=== PATIENT | male | born 1960 | race Caucasian/White ===

== ENCOUNTER 2020-03-23 08:45 | Day surgery (SDC) | payer BC, MEDICARE ==
--- NOTE | 2020-03-10 13:51 | NUR ---
PRE-ADMIT: WALKER: PT DOES NOT HAVE ONE AND WILL NEED TO OBTAIN THIS ITEM. BUT PT DOES HAVE A ELETRIC W/C STEPS: PT HAS RAMP AT HIS HOME GO GET INTO THE HOME AND THEN NO OTHER STEPS SHOWER: IT IS A WALKING, BUT UNABLE TO PLACE A SHOWER CHAIR INTO THE AREA TOO SMALL. HAS A TUB SHOWER THAT HE CAN PLACE A SHOWER CHAIR BUT WILL HAVE TO LIFT LEG INTO THE TUB. SHOWERS DUE HAND HELD SHOWER WAND. TOLITES; HAS TALL TOLIETS IN THE HOME. TRANSPORTION: WILL TAKE PT IF NEED OR HE WILL USE W/C DUE TO HE LIVES CLOSE TO DR STEWART OFFICE AND THE [facility] FOR PT.
[~2020-03-23] VITALS: Ht 167.6 cm; Wt 93.2 kg
[~2020-03-23 08:45] MED LIST: ACYCLOVIR200 MG PO; LISINOPRIL-HCT1 EAC1 PO; MS CONTIN30 MG PO; ZANAFLEX4 MG PO
--- NOTE | 2020-03-23 08:45 | NUR ---
PT ARRIVES TO DAY SURGERY WALKING INDEPENDENLTY, ACCOMPANIED BY , AND PLACED IN RM 3.
[2020-03-23] MEDS ORDERED: IRON325 M1 PO (09:09)
--- NOTE | 2020-03-23 09:31 | NUR ---
PRE-PROCEDURE CHECK IN COMPLETE. PT RESTING IN LOCKED AND LOWERED BED, CALL LIGHT WITHIN REACH. AT THE BEDSIDE. NO FURTHER REQUESTS AT THIS TIME.
--- NOTE | 2020-03-23 10:30 | NUR ---
IN TO ASSIST DELIVERER PHARMACY WITH BLOCK. BLOCK COMPLETE. PT RESTING IN LOCKED AND LOWERED BED, SIDE RAILS UP, CALL LIGHT WITHIN REACH. AT THE BEDSIDE.
--- NOTE | 2020-03-23 11:29 | NUR ---
IN TO ADMINISTER MEDICATION. PT SLEEPING IN LOCKED AND LOWERED BED, SIDE RAILS UP, CALL LIGHT WITHIN REACH, AT THE BEDSIDE. NO FURTHER REQUESTS AT THIS TIME.
--- NOTE | 2020-03-23 13:47 | NUR ---
03/23/20 1347 Sheets,Priya 1338 PT ARRIVED TO PACU ON 6L VIA MASK, PT NONAROUSBALE TO PAINFUL STIMULI WITH ORAL AIRWAY IN PLACE. RESP EVEN AND UNLABROED, RATE OF 8. VSS.
[2020-03-23] MEDS ORDERED: XARELTO10 MG PO (14:35)
[2020-03-23] MEDS ORDERED: OXYCODONE HCL5 MG PO (14:36)
[2020-03-23] MEDS ORDERED: ASPIRIN EC325 MG PO (14:36)
[2020-03-23] MEDS ORDERED: GABAPENTIN300 MG PO (14:36)
[2020-03-23] MEDS ORDERED: STOOL SOFTENER1 EAC4 PO (14:36)
--- NOTE | 2020-03-23 14:45 | NUR ---
PT RETURNED FROM PACU TO RM 3. PT RESTING IN LOCKED AND LOWERED BED, SIDE RAILS UP, CALL LIGHT WITHIN REACH, AT THE BEDSIDE. ICE WATER AND PUDDING PROVIDED.
--- NOTE | 2020-03-23 15:43 | NUR ---
IN FOR HOURLY ASSESSMENT. PT SLEEPING IN LOCKED AND LOWERED BED, SIDE RAILS UP, CALL LIGHT WITHIN REACH, AT THE BEDSIDE. WATER REFRESHED, CRACKERS PROVIDED. DISCHARGE CRITERIA DISCUSSED WITH . NO FURTHER REQUESTS AT THIS TIME.
--- NOTE | 2020-03-23 16:49 | NUR ---
PT UNABLE TO VOID AT THIS POINT. BLADDER SCANNED FOR 461ML OF FLUID. PT RESTING IN LOCKED AND LOWERED BED, SIDE RAILS UP, CALL LIGHT WITHIN REACH, AT THE BEDSIDE. NO FURHTER REQUESTS AT THIS TIME.
--- NOTE | 2020-03-23 17:00 | NUR ---
DR STEWART CALLED TO NOTIFY OF INABILITY TO VOID AND PHYSICAL THERAPY UNABLE TO WORK WITH PATIENT DUE TO DROWSINESS. MD ADVISED TO SEND PT TO THE FLOOR. PT AND UPDATED.
--- NOTE | 2020-03-23 17:00 | NUR ---
MED SURG CALLED AND NOTIFIED OF PT NEEDING TO TRANSFER TO MED SURG AT 1730. CHARGE NURSE VERIFIED PT WOULD BE GOING TO RM 125.
--- NOTE | 2020-03-23 17:45 | NUR ---
PT WENT FROM DAY SURGERY RM 3 TO MED SURG RM 125. PT TRANSFERRED FROM DAYSURGERY STRETCHER TO [facility] BED INDEPENDNELTY WITH NO COMPLICATIONS. HAND OFF REPORT GIVEN TO RANCHO TOTH.
--- NOTE | 2020-03-23 18:18 | NUR ---
PT ARRIVED TO FLOOR VIA STRETCHER. PT IS DROWSY. PAIN AT 6/10. SCEHDULED TORIDOL ADMSINTERED. CPOX PLACED. PT DESATS TO 87% ON RA WHILE SLEEPING. 2L NC PLACED CRYO CUFF IN PLACE, FEET PUMPS, TEDHOSE, AKHIL WRAP ON. ACTICOAT IN PLACE. ON-Q SET TO 4. LUNGS CLEAR. VITALS TAKEN AND STABLE.
--- NOTE | 2020-03-23 19:41 | NUR ---
REPORT RECEIVED FROM KENIA TOTH. PT AWAKE, DROWSY IN BED. DRESSING TO L KNEE C/D/I WITH AKHIL WRAP, CRYO AND ON-Q IN PLACE. PT REPORTS 3/10 PAIN, STATES TOLERABLE AT THIS TIME. CPOX IN PLACE, ON 2L 02 NC. PT DUE TO VOID, WILL CONT TO MONITOR AND FOLLOW MD ORDERS. CALL LIGHT IN REACH.
--- NOTE | 2020-03-23 21:31 | NUR ---
SCHEDULED MEDICATIONS ADMINISTERED. PATIENT DUE TO VOID, UNABLE. BLADDER SCAN READS >468, MEDEL PLACED PER ORDER WITH 500 ML OUT IMMEDIATELY, ORANGE IN COLOR. PT REPORTS NO PAIN IN L KNEE, "JUST PRESSURE". DRESSING C/D/I. REMAINS ON 2L O2 NC. ASSESSMENT COMPLETE. VS AND I/O'S COMPLETE. CALL LIGHT IN REACH, WILL CONTINUE TO MONITOR.
--- NOTE | 2020-03-24 00:25 | NUR ---
SCHEDULED MEDS ADMINISTERED. PATIENT REPORTS NO NEEDS OR DISCOMFORT AT THIS TIME. CALL LIGHT IN REACH, WILL CONTINUE TO MONITOR.
--- NOTE | 2020-03-24 02:46 | NUR ---
VITALS TAKEN, ASSESSMENT COMPLETE. ABX INFUSED. SALINE LOCKED. CRYO REFILLED. PRN PAIN MEDICATION ADMINISTERED FOR 6/10 PAIN TO KNEE, DRESSING C/D/I. WATER REFILLED. MEDEL WNL. PT STATES NO OTHER NEEDS. CALL LIGHT IN REACH.
--- NOTE | 2020-03-24 04:30 | NUR ---
ROUNDED ON PATIENT. GAS ENGINE MECHANIC HAD ADMINISTERED PRN PAIN MEDICATION PER PT REQUEST, THIS RN UNAVAILABLE AT TIME, SEE JUN. PT IN BED WITH EYES CLOSED, BREATHING EVEN AND UNLABORED. 2L NC IN PLACE, TOLERATING WELL. NO APPARENT NEEDS OR DISTRESS. WILL CONTINUE TO MONITOR.
--- NOTE | 2020-03-24 05:32 | NUR ---
MEDICATIONS ADMINISTERED. PATIENT STATES PAIN IS NOW DOWN TO 1-2/10. VITALS AND I/O'S COMPLETE. 2L NC IN PLACE, TOLERATING WELL. CRYO REFILLED, WATER CUP REFILLED. VSS. A+O. GIANFRANCO WNL. CALL LIGHT IN REACH, PT STATES NO OTHER NEEDS.
--- NOTE | 2020-03-24 06:32 | NUR ---
MEDEL REMOVED, WNL. PT AMBULATED TO BR WITH FWW AND 1PA, UNABLE TO VOID. BACK TO BED WITH URINAL IN REACH. SCDS ON. DRESSING C/D/I. CRYO IN PLACE, FILLED. ON-Q IN PLACE AT 4. PT REPORTS 1-2/10 PAIN IN KNEE. WATER AVAILABLE AT BEDSIDE, ENCOURAGED TO CONTINUE ATTEMPTING TO VOID. CALL LIGHT IN REACH. NO OTHER NEEDS AT THIS TIME. PT EXPRESSES GRATITUDE FOR STAFF AND FACILITY, STATES "THIS HAS BEEN A GOOD EXPERIENCE FOR ME HERE."
--- NOTE | 2020-03-24 07:13 | NUR ---
REPORT RECEIVED. PT AWAKE IN BED WATCHING TV. REMOVED 2L NC NOW THAT PT IS AWAKE. PAIN REPORTED 3/10. CALL LIGHT IN REACH. CRYOCUFF, SCD'S, TEDHOSE IN PLACE.
--- NOTE | 2020-03-24 09:59 | NUR ---
PATIENT SITTING UP IN CHAIR. IN ROOM. VITAL SIGNS AND I&O DONE. CALL LIGHT WITHIN REACH. NO OTHER NEEDS AT THIS TIME
--- NOTE | 2020-03-24 10:00 | NUR ---
SBA WITH FWW TO BATHROOM. VOIDED 200ML. UP IN CHAIR NOW. REPORTING PAIN 5/10.
--- NOTE | 2020-03-24 12:55 | NUR ---
PT UP TO BATHROOM TO ATTEMPT TO VOID. ATE 100% ON LUNCH. REPOORTING 5/10 PAIN IN RGIHT KNEE, 10 MG OXYCODONE ADMISNTERED.
--- NOTE | 2020-03-24 13:05 | NUR ---
PATIENT SITTING UP IN CHAIR. IN ROOM. PATIENT USES THE BATHROOM. ONE PERSON ASSISTING WITH WALKER. PATIENT BACKS TO CHAIR. VITAL SIGNS AND I&O DONE. CALL LIGHT WITHIN REACH. NO OTHER NEEDS AT THIS TIME
[2020-03-24] MEDS ORDERED: VITAMIN C500 M1 PO (14:12)
--- NOTE | 2020-03-24 14:14 | NUR ---
MED REC COMPLETE
--- NOTE | 2020-03-25 10:40 | OR ---
[facility] [address] [place], [place] [address] Signed DATE OF OPERATION: 03/23/2020 SURGEON: Fazal Sarmiento MD PREOPERATIVE DIAGNOSIS: Left knee degenerative joint disease. POSTOPERATIVE DIAGNOSIS: Left knee degenerative joint disease. PROCEDURE PERFORMED: Left total knee arthroplasty. TOP STEEP TENDER: CHRIS Green ANESTHESIA: Spinal. BLOOD LOSS: 200 mL. IMPLANTS: Hieu Triathlon size 5, 10 mm polyethylene and 35 mm patella. BRIEF HISTORY: Timothy is a 59-year-old gentleman with pain in both knees. His x-rays were consistent with significant osteoarthritis. Risks and benefits of operative treatment were discussed with him. He elected to proceed. DESCRIPTION OF PROCEDURE: Once consent was obtained, he was taken to the operating room. After adequate anesthesia, he was placed on operating table. All downside pressure points were well padded. Hip bump was placed. The leg was then prepped and draped in a standard sterile fashion. The leg was approached through standard anterior incision, carried through skin and subcutaneous tissue. The subvastus approach was taken through the capsule and the MCL was elevated with a sleeve around the posteromedial corner. The infrapatellar fat pad was excised. The anterior horns of menisci were transected as was the ACL. The knee was flexed and the checkpoints were placed in the medial femoral condyle and proximal tibia. The Wilver computer array was then placed in the medial femoral Electronically Signed By: FAZAL SARMIENTO MD 03/25/20 1040 PATIENT NAME: TIMOTHY SONI OPERATIVE REPORT DATE OF : 60 REPORT #: [id number] PHYSICIAN: FAZAL SARMIENTO MD PCP: DAVID BLANCAS MD REPORT IS CONFIDENTIAL AND NOT TO BE RELEASED WITHOUT AUTHORIZATION [facility] [address], [place] [address] Signed intra-incisional. Two stab incisions were made on the proximal tibia, one handbreadth below the tuberosity and the tibial array was placed. Once this was accomplished, the leg was registered with the computer. The fine anatomic points were then taken. We then took stress views and adjusted the tibia by one 1 degree and we were satisfied with the extension and flexion gaps being symmetric. The robot was then brought in and the straight cuts were made, starting with the tibia. The 2 angle cuts were then made. All bone pieces were then removed and the menisci removed posteriorly. The really want any posterior osteophytes to remove. We then placed the trials and took the knee through range of motion. I was a little loose, so we placed a 10 mm polyethylene and got excellent flexion extension gaps that were quite symmetric. The patella was cut sized and drilled for a 35 patella. The femoral drill holes were then completed as was the tibial keel punch. The bone was fairly soft, we elected to go with the hybrid prosthesis. The tibia was pulse lavaged and packed with dry Ray-Mio. The cement was mixed. When reached proper consistency, was placed on the tibia and the 2 components. The tibia was impacted into position. Excess cement was removed. The polyethylene was snapped into position and the femur was impacted until it was well seated. The knee was then extended and nicely loaded. The patella was clamped into position. Again, overflow cement was removed. The cement was allowed to harden. Once hardened sufficiently, any remaining overflow was removed using osteotomes. The knee was taken through range of motion and found to be quite stable. The On-Q pain pump was then placed percutaneously into the adductor canal through the suprapatellar pouch. The arthrotomy was then closed with #2 Stratafix. The periarticular soft tissues were injected with 100 mL ropivacaine and Toradol mixture. The subcutaneous tissue was closed with 2-0 Stratafix and skin with papi. The wounds were dressed with Acticoat 7 dressing and an Sean wrap. He was awakened and taken to the recovery room in satisfactory condition. All sponge, needle, and instrument counts were correct. Fazal Sarmiento MD BA/MODL /[id number] Copies: Electronically Signed By: FAZAL SARMIENTO MD 03/25/20 1040 PATIENT NAME: TIMOTHY SONI OPERATIVE REPORT DATE OF : 60 REPORT #: [id number] PHYSICIAN: FAZAL SARMIENTO MD PCP: DAVID BLANCAS MD REPORT IS CONFIDENTIAL AND NOT TO BE RELEASED WITHOUT AUTHORIZATION [facility] [address] [place] [id number] Signed ~ Electronically Signed By: FAZAL SARMIENTO MD 03/25/20 1040 PATIENT NAME: TIMOTHY SONI ANTONIO OPERATIVE REPORT DATE OF : 60 REPORT #: [id number] PHYSICIAN: FAZAL SARMIENTO MD PCP: DAVID BLANCAS MD REPORT IS CONFIDENTIAL AND NOT TO BE RELEASED WITHOUT AUTHORIZATION
[2020-03-25] MEDS ORDERED: OXYCODONE HCL10 MG PO (12:20)
--- NOTE | 2020-03-27 08:03 | NUR ---
H&P, Surgery report, PT eval and notes, face sheet faxed to [facility].
== END 2020-03-24 15:25 | disposition home or self-care (01) ==
LOC: DS 08:45 → MS 08:45 → DS 10:30 → MS 17:45 → DS 03-24 15:25
PROVIDERS: ATTEND Specialist
PROC: 8E0Y0CZ Robotic Assisted Procedure of Lower Extremity, Open Approach (ICD-10-PCS; 2020-03-23)
PROC: 3E0T3BZ Introduction of Anesthetic Agent into Peripheral Nerves and Plexi, Percutaneous Approach (ICD-10-PCS; 2020-03-23)
PROC: 3E0T3BZ Introduction of Anesthetic Agent into Peripheral Nerves and Plexi, Percutaneous Approach (ICD-10-PCS; 2020-03-23)
PROC: 0SRD0J9 Replacement of Left Knee Joint with Synthetic Substitute, Cemented, Open Approach (ICD-10-PCS; principal; 2020-03-23 10:30)
DX: M17.0 Bilateral primary osteoarthritis of knee (principal); G89.18 Other acute postprocedural pain; I12.9 Hypertensive chronic kidney disease with stage 1 through stage 4 chronic kidney disease, or unspecified chronic kidney disease; N18.30 Chronic kidney disease, stage 3 unspecified; G89.29 Other chronic pain; M54.9 Dorsalgia, unspecified; Z79.899 Other long term (current) drug therapy; Z87.891 Personal history of nicotine dependence; Z20.828 Contact with and (suspected) exposure to other viral communicable diseases; Z01.812 Encounter for preprocedural laboratory examination
CPT/HCPCS: 0055T; 27447; 01402; 51702; 51798; 64447; 64450; 76942; 97110; 97116; 97161; 97165; C1713; C1776; J0461; J0690; J0735; J1100; J1160; J1885; J2001; J2250; J2405; J2704; J2765; J2795; J3010; J7121; J8540

== ENCOUNTER 2020-03-25 09:24 | Emergency (ER) | payer BC, MEDICARE ==
[~2020-03-25] VITALS: Ht 167.6 cm; Wt 93.0 kg
[~2020-03-25 09:24] MED LIST changes: +ASPIRIN EC325 MG PO; +GABAPENTIN300 MG PO; +IRON325 M1 PO; +OXYCODONE HCL5 MG PO; +STOOL SOFTENER1 EAC4 PO; +VITAMIN C500 M1 PO; +XARELTO10 MG PO
--- OUTSIDE RECORDS SUMMARY | 2020-03-25 09:58 | XMS ---
PreManage Notification: MOO SONI Security Nuclear Medicine Chief Technologist Events No recent Security Events currently on file [facility] There are no care providers on record at this time. [facility] has no Care Guidelines for this patient. Madeline VISIT COUNT (12 MO.) 1 RANDEE Rosenbaum TOTAL 1 NOTE: Visits indicate total known visits. ED/UCC VISIT TRACKING (12 MO.) 03/25/2020 09:24 RANDEE Walker OR TYPE: Emergency COMPLAINT: - POST OP PROBLEM/PAIN INPATIENT VISIT TRACKING (12 MO.) No inpatient visits to display in this time frame [id number]
[2020-03-25] MEDS ORDERED: OXYCODONE HCL10 MG PO (12:20)
== END 2020-03-25 12:41 | disposition home or self-care (01) ==
LOC: ED 09:24
DX: G89.18 Other acute postprocedural pain (principal); I10 Essential (primary) hypertension; Z87.891 Personal history of nicotine dependence; Z79.899 Other long term (current) drug therapy; Z79.82 Long term (current) use of aspirin
CPT/HCPCS: 96372; 99283; J1170; J1885

== ENCOUNTER 2021-11-16 05:32 | Day surgery (SDC) | payer BC, MEDICARE ==
[~2021-11-16] VITALS: Ht 167.6 cm; Wt 104.5 kg
[~2021-11-16 05:32] MED LIST changes: +DICLOFENAC SODI75 MG PO; +GABAPENTIN600 MG PO; +OXYCODONE HCL10 MG PO
[2021-11-16] MEDS ORDERED: ACETAMINOPHEN325 M1 PO (06:05)
[2021-11-16] MEDS ORDERED: IBUPROFEN200 M1 PO (06:05)
--- NOTE | 2021-11-16 08:38 | NUR ---
PT ALERT, ORIENTED AND HAS HAD PREVIOUS SCOPES. PT WAITING FOR DR, GAVE BLESSING, PT THANKED ME SAID HE WAS DOING OK. WILL FOLLOW
--- NOTE | 2021-11-16 09:15 | NUR ---
11/16/21 0915 Anna Najera 0910-PATIENT ARRIVED TO PACU ON 10L MASK NONAROUSABLE ORAL AIRWAY IN PLACE. PLACED ON 6L MASK RR EVEN. LAYING LEFT LATERAL ABDOMEN SOFT. SR. IVF INFUSING. PATIENT HAS CHRONIC BACK PAIN AT HOME ORDERS WERE PLACED BY AZALEA STONER
--- NOTE | 2021-11-16 21:47 | OR ---
[facility] [address] [place], [place] [address] Signed DATE OF OPERATION: 11/16/2021 SURGEON: Azalea Mac MD PREOPERATIVE DIAGNOSIS: History of multiple polypectomies in the past. Last colonoscopy in 2015 (seven polyps). POSTOPERATIVE DIAGNOSES: 1. No evidence of polyps. 2. Internal hemorrhoids. PROCEDURE: Total colonoscopy to cecum. ANESTHESIA: Intravenous sedation, propofol infusion, Azalea Gale CRNA INDICATIONS: This 61-year-old white man is a patient of Dr. Blancas and underwent colonoscopy in [place], [place] in 2014 at which time he was found to have seven polyps. He is currently symptom free. He does have chronic pain in his back and elsewhere for which he takes MS Contin on a routine basis. He is admitted for colonoscopy. He understands the risks of bleeding, infection, and perforation. FINDINGS: The prep was quite excellent. Complete colonoscopy was undertaken of the cecum without question. He had no evidence of polyps, diverticular formation, colitis, or cancer. There were internal hemorrhoids, however. DESCRIPTION OF PROCEDURE: The patient was brought to the endoscopy suite and placed in lateral decubitus position. He was given preoperative antibiotic Ancef on the basis of prior knee replacement. After satisfactory anesthesia, digital rectal examination was performed which was normal. An Olympus video colonoscope was passed in the rectum and manipulated throughout the colon ultimately intubating the cecum itself. The ileocecal valve and appendiceal orifice were identified and the cecum was fully intubated. The scope was withdrawn from that point and examination throughout showed no sign of abnormality, specifically no polyps, diverticular formation, colitis, or cancer. Retroflexed view in the rectum did Electronically Signed By: AZALEA MAC MD 11/16/21 2147 PATIENT NAME: MOO SONI OPERATIVE REPORT DATE OF : 60 REPORT #: [id number] PHYSICIAN: AZALEA MAC MD PCP: DAVID BLANCAS MD REPORT IS CONFIDENTIAL AND NOT TO BE RELEASED WITHOUT AUTHORIZATION [facility] [address] [place], [place] [address] Signed confirm internal hemorrhoids. The scope was removed and the patient was taken to the recovery room in good condition. CONCLUSION DIAGNOSIS: Normal colon except for internal hemorrhoids. PLAN: Recommend repeat colonoscopy in 5 to 7 years based on prior history of multiple polyps, sooner if symptoms should develop. Recommend high-fiber diet as well. He will return to the ongoing care of Dr. Blancas. MD ERASMO Patrick/ARIN /[id number] cc: Dr. Blancas Copies: ~ Electronically Signed By: AZALEA MAC MD 11/16/21 2147 PATIENT NAME: MOO SONI OPERATIVE REPORT DATE OF : 60 REPORT #: [id number] PHYSICIAN: AZALEA MAC MD PCP: DAVID BLANCAS MD REPORT IS CONFIDENTIAL AND NOT TO BE RELEASED WITHOUT AUTHORIZATION
== END 2021-11-16 09:55 | disposition home or self-care (01) ==
LOC: DS 05:32 → OPS 05:32 → DS 08:00 → OPS 09:55
PROVIDERS: ATTEND Surgery
PROC: 0DJD8ZZ Inspection of Lower Intestinal Tract, Via Natural or Artificial Opening Endoscopic (ICD-10-PCS; principal; 2021-11-16 08:00)
DX: Z12.11 Encounter for screening for malignant neoplasm of colon (principal); K64.8 Other hemorrhoids; I10 Essential (primary) hypertension; B00.1 Herpesviral vesicular dermatitis; E66.9 Obesity, unspecified; Z68.36 Body mass index [BMI] 36.0-36.9, adult; Z86.010 Personal history of colon polyps; Z96.659 Presence of unspecified artificial knee joint; Z20.822 Contact with and (suspected) exposure to COVID-19
CPT/HCPCS: C9803; J0690; J2270; J2704; J7121; U0003

== ENCOUNTER 2022-11-07 09:03 | Emergency (ER) | payer BC, MEDICARE ==
[~2022-11-07] VITALS: Ht 167.6 cm; Wt 104.3 kg
--- OUTSIDE RECORDS SUMMARY | ~2022-11-07 | XMS | Continuity of Care Document ---
Demographics + + + | Address | [address] | | | [place] [address] | + + + | Preferred Language | Unknown | + + + | Marital Status | | + + + | Episcopal Affiliation | Unknown | + + + | Race | White | + + + | Ethnic Group | Not or | + + + Author + + + | Author | [facility] | + + + | Organization | [facility] | + + + | Address | [address] | | | [place] [address] | + + + | Phone | | + + + Care Team Providers + + + + | Care Dietetic Intern Name | Role | Phone | + + + + Unavailable | Unavailable | + + + + Unavailable | Unavailable | + + + + Allergies No information. Encounters No information. Functional Status No information. Immunizations No information. Medications + + + + | date | description | facility | + + + + | 2020-03-23 00:00 | OXYCODONE HCL | [facility] | + + + + | 2020-03-25 00:00 | OXYCODONE HCL | [facility] | + + + + | 2020-03-23 00:00 | RIVAROXABAN | [facility] | + + + + | 2021-11-16 00:00 | TIZANIDINE HCL | [facility] | + + + + | 2021-11-16 00:00 | ACYCLOVIR | [facility] | + + + + | 2021-11-16 00:00 | | [facility] | | | LISINOPRIL/HYDROCHLOROTHIAZ | | | | CARLOS | | + + + + | 2020-03-23 00:00 | ASPIRIN | [facility] | + + + + | 2020-03-23 00:00 | GABAPENTIN | [facility] | + + + + | 2021-11-16 00:00 | IBUPROFEN | [facility] | + + + + | 2021-11-16 00:00 | ACETAMINOPHEN | [facility] | + + + + | 2021-11-16 00:00 | MORPHINE SULFATE | [facility] | + + + + | 2020-03-23 00:00 | Sennosides/Docusate Sodium | [facility] | | | | | + + + + Problems + + + + | date | description | facility | + + + + | 2020-03-25 00:00 | Postoperative pain | [facility] | + + + + Procedures + + + + | date | description | facility | + + + + | 2021-11-16 00:00 | Colonoscopy with biopsy if | [facility] | | | indicated | | + + + + | 2021-11-16 00:00 | Colonoscopy with biopsy if | [facility] | | | indicated | | + + + + Results/Labs +--------+--------+ + +---------+--------+ + | test | date | author | facility | value | unit | | | | | | | | | interpreta | | | | | | | | tion | +--------+--------+ + +---------+--------+ + + + | Result panel 1 | + + + + + + +---------+ + + | (unknown) | (no date) | (unknown) | [facility] | (no | (units | (unknown) | | | | [facility] | value) | unknown) | | | | [facility] | | | | + + + + +---------+ + + + + | Result panel 2 | + + + + + + +---------+ + + | (unknown) | (no date) | (unknown) | [facility] | (no | (units | (unknown) | | | | | [facility] | value) | unknown) | | | | | [facility] | | | | + + + + +---------+ + + + + | Result panel 3 | + + + + + + +---------+ + + | (unknown) | (no date) | (unknown) | [facility] | (no | (units | (unknown) | | | | | [facility] | value) | unknown) | | | | | [facility] | | | | + + + + +---------+ + + + + | Result panel 4 | + + + + + + +---------+ + + | (unknown) | (no date) | (unknown) | [facility] | (no | (units | (unknown) | | | | | [facility] | value) | unknown) | | | | | [facility] | | | | + + + + +---------+ + + + + | Result panel 5 | + + + + + + +---------+ + + | (unknown) | (no date) | (unknown) | [facility] | (no | (units | (unknown) | | | | | [facility] | value) | unknown) | | | | | [facility] | | | | + + + + +---------+ + + + + | Result panel 6 | + + + + + + +---------+ + + | (unknown) | (no date) | (unknown) | [facility] | (no | (units | (unknown) | | | | | [facility] | value) | unknown) | | | | | [facility] | | | | + + + + +---------+ + + + + | Result panel 7 | + + + + + + +---------+ + + | (unknown) | (no date) | (unknown) | [facility] | (no | (units | (unknown) | | | | | [facility] | value) | unknown) | | | | | [facility] | | | | + + + + +---------+ + + + + | Result panel 8 | + + + + + + +---------+ + + | (unknown) | (no date) | (unknown) | [facility] | (no | (units | (unknown) | | | | | [facility] | value) | unknown) | | | | | [facility] | | | | + + + + +---------+ + + + + | Result panel 9 | + + + + + + +---------+ + + | (unknown) | (no date) | (unknown) | [facility] | (no | (units | (unknown) | | | | | [facility] | value) | unknown) | | | | | [facility] | | | | + + + + +---------+ + + + + | Result panel 10 | + + + + + + +---------+ + + | (unknown) | (no date) | (unknown) | [facility] | (no | (units | (unknown) | | | | | [facility] | value) | unknown) | | | | | [facility] | | | | + + + + +---------+ + + + + | Result panel 11 | + + + + + + +---------+ + + | (unknown) | (no date) | (unknown) | [facility] | (no | (units | (unknown) | | | | | [facility] | value) | unknown) | | | | | [facility] | | | | + + + + +---------+ + + + + | Result panel 12 | + + + + + + +---------+ + + | (unknown) | (no date) | (unknown) | [facility] | (no | (units | (unknown) | | | | | [facility] | value) | unknown) | | | | | [facility] | | | | + + + + +---------+ + + + + | Result panel 13 | + + + + + + +---------+ + + | (unknown) | (no date) | (unknown) | [facility] | (no | (units | (unknown) | | | | | [facility] | value) | unknown) | | | | | [facility] | | | | + + + + +---------+ + + + + | Result panel 14 | + + + + + + +---------+ + + | (unknown) | (no date) | (unknown) | [facility] | (no | (units | (unknown) | | | | | [facility] | value) | unknown) | | | | | [facility] | | | | + + + + +---------+ + + + + | Result panel 15 | + + + + + + +---------+ + + | (unknown) | (no date) | (unknown) | [facility] | (no | (units | (unknown) | | | | | [facility] | value) | unknown) | | | | | [facility] | | | | + + + + +---------+ + + + + | Result panel 16 | + + + + + + +---------+ + + | (unknown) | (no date) | (unknown) | [facility] | (no | (units | (unknown) | | | | | [facility] | value) | unknown) | | | | | [facility] | | | | + + + + +---------+ + + + + | Result panel 17 | + + + + + + +---------+ + + | (unknown) | (no date) | (unknown) | [facility] | (no | (units | (unknown) | | | | | [facility] | value) | unknown) | | | | | [facility] | | | | + + + + +---------+ + + + + | Result panel 18 | + + + + + + +---------+ + + | (unknown) | (no date) | (unknown) | [facility] | (no | (units | (unknown) | | | | | [facility] | value) | unknown) | | | | | [facility] | | | | + + + + +---------+ + + + + | Result panel 19 | + + + + + + +---------+ + + | (unknown) | (no date) | (unknown) | [facility] | (no | (units | (unknown) | | | | | [facility] | value) | unknown) | | | | | [facility] | | | | + + + + +---------+ + + + + | Result panel 20 | + + + + + + +---------+ + + | (unknown) | (no date) | (unknown) | [facility] | (no | (units | (unknown) | | | | | [facility] | value) | unknown) | | | | | [facility] | | | | + + + + +---------+ + + + + | Result panel 21 | + + + + + + +---------+ + + | (unknown) | (no date) | (unknown) | [facility] | (no | (units | (unknown) | | | | | [facility] | value) | unknown) | | | | | [facility] | | | | + + + + +---------+ + + + + | Result panel 22 | + + + + + + +---------+ + + | (unknown) | (no date) | (unknown) | [facility] | (no | (units | (unknown) | | | | | [facility] | value) | unknown) | | | | | [facility] | | | | + + + + +---------+ + + + + | Result panel 23 | + + + + + + +---------+ + + | (unknown) | (no date) | (unknown) | [facility] | (no | (units | (unknown) | | | | | [facility] | value) | unknown) | | | | | [facility] | | | | + + + + +---------+ + + + + | Result panel 24 | + + + + + + +---------+ + + | (unknown) | (no date) | (unknown) | [facility] | (no | (units | (unknown) | | | | | [facility] | value) | unknown) | | | | | [facility] | | | | + + + + +---------+ + + + + | Result panel 25 | + + + + + + +---------+ + + | (unknown) | (no date) | (unknown) | [facility] | (no | (units | (unknown) | | | | | [facility] | value) | unknown) | | | | | [facility] | | | | + + + + +---------+ + + + + | Result panel 26 | + + + + + + +---------+ + + | (unknown) | (no date) | (unknown) | [facility] | (no | (units | (unknown) | | | | | [facility] | value) | unknown) | | | | | [facility] | | | | + + + + +---------+ + + + + | Result panel 27 | + + + + + + +---------+ + + | (unknown) | (no date) | (unknown) | [facility] | (no | (units | (unknown) | | | | | [facility] | value) | unknown) | | | | | [facility] | | | | + + + + +---------+ + + + + | Result panel 28 | + + + + + + +---------+ + + | (unknown) | (no date) | (unknown) | [facility] | (no | (units | (unknown) | | | | | [facility] | value) | unknown) | | | | | [facility] | | | | + + + + +---------+ + + + + | Result panel 29 | + + + + + + +---------+ + + | (unknown) | (no date) | (unknown) | [facility] | (no | (units | (unknown) | | | | | [facility] | value) | unknown) | | | | | [facility] | | | | + + + + +---------+ + + + + | Result panel 30 | + + + + + + +---------+ + + | (unknown) | (no date) | (unknown) | [facility] | (no | (units | (unknown) | | | | | [facility] | value) | unknown) | | [facility] | | [facility] | | | | + + + + +---------+ + + + + | Result panel 31 | + + + + + + +---------+ + + | (unknown) | (no date) | (unknown) | [facility] | (no | (units | (unknown) | | | | | [facility] | value) | unknown) | | | | | [facility] | | | | + + + + +---------+ + + + + | Result panel 32 | + + + + + + +---------+ + + | (unknown) | (no date) | (unknown) | [facility] | (no | (units | (unknown) | | | | | [facility] | value) | unknown) | | | | | [facility] | | | | + + + + +---------+ + + + + | Result panel 33 | + + + + + + +---------+ + + | (unknown) | (no date) | (unknown) | [facility] | (no | (units | (unknown) | | | | | [facility] | value) | unknown) | | | | | [facility] | | | | + + + + +---------+ + + + + | Result panel 34 | + + + + + + +---------+ + + | (unknown) | (no date) | (unknown) | [facility] | (no | (units | (unknown) | | | | | [facility] | value) | unknown) | | | | | [facility] | | | | + + + + +---------+ + + Social History No information. Vital Signs + + + +---------+ | date | measurement | value | units | + + + +---------+ | 2021-11-10 00:00 | BMI | 37.2 | kg/m2 | + + + +---------+ | 2021-11-10 00:00 | height_metric | 167.64 | cm | + + + +---------+ | 2021-11-10 00:00 | height_standard | 66 | in | + + + +---------+ | 2021-11-10 00:00 | weight_metric | 104.54 | kg | + + + +---------+ | 2021-11-10 00:00 | weight_standard | 230.47 | lb | + + + +---------+ | 2021-11-16 00:00 | BP_diastolic | 86 | mmHg | + + + +---------+ | 2021-11-16 00:00 | BP_systolic | 102 | mmHg | + + + +---------+ | 2021-11-16 00:00 | heart_rate | 68 | /min | + + + +---------+ | 2021-11-16 00:00 | o2_saturation | 95 | % | + + + +---------+ | 2021-11-16 00:00 | respiration_rate | 16 | /min | + + + +---------+ | 2021-11-16 00:00 | temperature_metric | 36.39 | C | | | | | | + + + +---------+ | 2021-11-16 00:00 | | 97.5 | F | | | temperature_standar | | | | | d | | | + + + +---------+"
--- OUTSIDE RECORDS SUMMARY | ~2022-11-07 | XMS | Continuity of Care Document ---
Demographics + + + | Address | [address] | | | [place] [address] | + + + | Preferred Language | Unknown | + + + | Marital Status | | + + + | Mosque Affiliation | Unknown | + + + | Race | White | + + + | Ethnic Group | Not or | + + + Author + + + | Author | [facility] | + + + | Organization | [facility] | + + + | Address | [address] | | | [place] [address] | + + + | Phone | | + + + Care Team Providers + + + + | Care Wood Grinder Operator Name | Role | Phone | + + + + Unavailable | Unavailable | + + + + Unavailable | Unavailable | + + + + Allergies No information. Encounters No information. Functional Status No information. Immunizations No information. Medications + + + + | date | description | facility | + + + + | 2020-03-23 00:00 | OXYCODONE HCL | [facility] | + + + + | 2020-03-25 00:00 | OXYCODONE HCL | [facility] | + + + + | 2020-03-23 00:00 | RIVAROXABAN | [facility] | + + + + | 2021-11-16 00:00 | TIZANIDINE HCL | [facility] | + + + + | 2021-11-16 00:00 | ACYCLOVIR | [facility] | + + + + | 2021-11-16 00:00 | | [facility] | | | LISINOPRIL/HYDROCHLOROTHIAZ | | | | CARLOS | | + + + + | 2020-03-23 00:00 | ASPIRIN | [facility] | + + + + | 2020-03-23 00:00 | GABAPENTIN | [facility] | + + + + | 2021-11-16 00:00 | IBUPROFEN | [facility] | + + + + | 2021-11-16 00:00 | ACETAMINOPHEN | [facility] | + + + + | 2021-11-16 00:00 | MORPHINE SULFATE | [facility] | + + + + | 2020-03-23 00:00 | Sennosides/Docusate Sodium | [facility] | | | | | + + + + Problems + + + + | date | description | facility | + + + + | 2020-03-25 00:00 | Postoperative pain | [facility] | + + + + Procedures + + + + | date | description | facility | + + + + | 2021-11-16 00:00 | Colonoscopy with biopsy if | [facility] | | | indicated | | + + + + | 2021-11-16 00:00 | Colonoscopy with biopsy if | [facility] | | | indicated | [...] | (unknown) | | | | | [facility] | value) | unknown) | | | [...]
[~2022-11-07 09:03] MED LIST changes: +ACETAMINOPHEN325 M1 PO; +IBUPROFEN200 M1 PO
--- OUTSIDE RECORDS SUMMARY | 2022-11-07 09:09 | XMS ---
PreManage Notification: MOO SONI Security Enrollment Advisor Events No recent Security Events currently on file CRITERIA MET - [facility] CARE PROVIDERS There are no care providers on record at this time. [facility] has no Care Guidelines for this patient. Madeline VISIT COUNT (12 MO.) 1 RANDEE Rosenbaum TOTAL 1 NOTE: Visits indicate total known visits. ED/C VISIT TRACKING (12 MO.) 11/07/2022 09:04 RANDEE Walker OR TYPE: Emergency COMPLAINT: - FALL, R RIB PAIN INPATIENT VISIT TRACKING (12 MO.) No inpatient visits to display in this time frame [id number]
[2022-11-07] MEDS ORDERED: OXYCODONE HCL5 MG PO (10:06)
[2022-11-07 10:30] VITALS: BP 112/89
== END 2022-11-07 10:32 | disposition home or self-care (01) ==
LOC: ED 09:03
DX: S22.41XA Multiple fractures of ribs, right side, initial encounter for closed fracture (principal); W10.1XXA Fall (on)(from) sidewalk curb, initial encounter; I10 Essential (primary) hypertension; Z87.891 Personal history of nicotine dependence; Z79.899 Other long term (current) drug therapy
CPT/HCPCS: 71111; 96372; 99283 25; J1885